=== PATIENT | female | born 1990 | race African-American/Black ===

== ENCOUNTER 2016-12-31 13:06 | Observation (INO) | payer MEDICAID ==
[~2016-12-31] VITALS: Ht 160 cm; Wt 60.8 kg
[2016-12-31] MEDS ORDERED: RHO(D) IMMUNE GLOBULIN 300 MCG/SYR IM NR (14:45)
== END 2016-12-31 16:00 | disposition home or self-care (01) ==
LOC: L&D 13:06
PROVIDERS: ADMIT Obstetrics & Gynecology Obstetrics; ATTEND Obstetrics & Gynecology Obstetrics
DX: O36.0190 Maternal care for anti-D [Rh] antibodies, unspecified trimester, not applicable or unspecified (principal); Z3A.00 Weeks of gestation of pregnancy not specified
CPT/HCPCS: 36415; 86850; 86900; 86901; 90384; 96372; G0378